=== PATIENT | male | born 1940 | race Caucasian/White ===

== ENCOUNTER 2023-05-16 07:58 | Emergency (ER) | payer OTHER ==
[2023-05-16] MEDS ORDERED: NA CHLORIDE 0.9% 500 ML ONE (08:31)
[2023-05-16] MEDS ORDERED: FAMOTIDINE 20 MG/2 ML VIAL IV ONE (08:31)
[2023-05-16] MEDS ORDERED: DIPHENHYDRAMINE 50 MG/ML VIAL ONE (08:31)
[2023-05-16 08:32] LABS: Absolute Lymphocytes (CBC) 0.8 K/uL (0.7-4.9); Hematocrit 44.6 % (39.6-49.0); Lymphocytes % 13.4 % (15.3-44.8); MPV 6.9 fL (7.6-11.3)
[2023-05-16] MEDS ORDERED: dexAMETHasone 10 MG/ML VIAL ONE (08:33)
[2023-05-16 09:08] LABS: Albumin 3.9 g/dL (3.4-5.0); Bilirubin Total 0.8 mg/dL (0.2-1.0); Potassium 3.8 mEq/L (3.5-5.1); Protein, Total 6.9 g/dL (6.4-8.2)
--- NOTE | 2023-05-16 10:05 | RAD REPORT ---
EXAM DESCRIPTION: CT - Angio Aorta For Dissection - 05/16/2023 9:21 am CLINICAL HISTORY: left flank pain, diarrhea COMPARISON: No comparisons TECHNIQUE: Dynamically enhanced 3 mm thick images of the chest, abdomen, and upper pelvis were obtai christina during administration of approximately 100mL Isovue 370 IV contrast. Sagittal and coronal reconst ructions as well as maximal intensity projection reconstructions were generated and reviewed per an a ortic angiography protocol. All CT scans are performed using dose optimization technique as appropriate and may include automated exposure control or mA/KV adjustment according to patient size. FINDINGS: Aorta is normal in diameter with no dissection or other acute aortic findings. mild athero sclerotic calcifications along the abdominal aorta and its bifurcation. 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 Reconstruction images show no o ther significant findings. Pulmonary arteries are normal as well. No mass or infiltrate in the lung parenchyma. No pleural thickening, pleural effusion or pneumothorax . No abnormal mediastinal or hilar mass or lymphadenopathy seen. No chest wall mass or abnormal axillar y lymphadenopathy. Celiac, SMA and renal arteries show no suspicious findings. 4 millimeter distal left ureteric calculu s, with mild left hydroureteronephrosis. Colonic diverticulosis. Bilateral inguinal hernias containin g fat, larger on the left. Mild lobulated hyperdense material near the gallbladder fundus suggestive of small volume of sludge. Solid abdominal viscera and bowel show no other significant findings. No m ass or abnormal lymphadenopathy. IMPRESSION: No acute abnormalities on CT angiogram of the aorta. 4 millimeter distal left ureteric calculus, with mild left hydroureteronephrosis. Other incidental findings as above. The findings were communicated to Tyson Garcia on 05/16/2023 at 09:58 hours.
[2023-05-16] MEDS ORDERED: MAGNESIUM SULFATE 1 gm IVPB 1 GM/100 ML BAG IV ONE (10:19)
[2023-05-16] MEDS ORDERED: TAMSULOSIN 0.4 MG SR CAP ONE (10:19)
--- NOTE | 2023-05-16 12:40 | ER ---
Nurse's Notes [facility] Name: Arthur De La Paz Age: 82 yrs Sex: Male : 1940 Arrival Date: 05/16/2023 Time: 07:58 Bed 6 Private MD: Diagnosis: Calculus of ureter Presentation: 05/16 08:12 Chief complaint: Patient states: L Flank pain x 2 days. Diarrhea x 4 days prior to ss flank pain starting. Denies N/V. Coronavirus screen: Client denies travel out of the [place] in the last 14 days. Ebola Screen: Patient denies exposure to infectious person. Patient denies travel to an Ebola-affected area in the 21 days before illness onset. Initial Sepsis Screen: Does the patient meet any 2 criteria? No. Patient's initial sepsis screen is negative. Does the patient have a suspected source of infection? No. Patient's initial sepsis screen is negative. Risk Assessment: Do you want to hurt yourself or someone else? Patient reports no desire to harm self or others. Onset of symptoms was May 14, 2023. 08:12 Method Of Arrival: Ambulatory ss 08:12 Acuity: KYLE 3 ss Historical: - Allergies: 08:15 SHELLFISH; ss - Home Meds: 08:35 metoprolol tartrate 25 mg Oral tablet 2 times per day [Active]; jl7 - PMHx: 08:35 Hypertensive disorder; jl7 - Immunization history:: Client reports receiving the 1st dose of the Covid vaccine. - Social history:: Smoking status: Patient denies any tobacco usage or history of. Screenin:35 [facility] ED Fall Risk Assessment (Adult) History of falling in the last 3 months, jl7 including since admission No falls in past 3 months (0 pts) Confusion or Disorientation No (0 pts) Intoxicated or Sedated No (0 pts) Impaired Gait No (0 pts) Mobility Assist Device Used No (0 pt) Altered Elimination No (0 pt) Score/Fall Risk Level 0 - 2 = Low Risk Oriented to surroundings, Maintained a safe environment. Abuse screen: Denies threats or abuse. Denies injuries from another. Nutritional screening: No deficits noted. Tuberculosis screening: No symptoms or risk factors identified. Assessment: 08:30 General: Appears in no apparent distress. uncomfortable, Behavior is calm, cooperative, jl7 appropriate for age. Pain: Complains of pain in left flank Pain currently is 8 out of 10 on a pain scale. Quality of pain is described as sharp, stabbing. Neuro: Level of Consciousness is awake, alert, obeys commands, Oriented to person, place, time, situation. Cardiovascular: Patient's skin is warm and dry. Respiratory: Airway is patent Respiratory effort is even, unlabored, Respiratory pattern is regular, symmetrical. GI: Patient currently denies diarrhea, nausea, vomiting. : Reports decreased output. Derm: Skin is pink, warm \T\ dry. 09:18 Reassessment: Pt taken to CT. ph 10:00 Reassessment: Patient appears in no apparent distress at this time. No changes from jl7 previously documented assessment. Patient and/or family updated on plan of care and expected duration. Pain level reassessed. Patient is alert, oriented x 3, equal unlabored respirations, skin warm/dry/pink. 11:00 Reassessment: Patient appears in no apparent distress at this time. No changes from jl7 previously documented assessment. Patient and/or family updated on plan of care and expected duration. Pain level reassessed. Patient is alert, oriented x 3, equal unlabored respirations, skin warm/dry/pink. 12:00 Reassessment: Patient appears in no apparent distress at this time. No changes from jl7 previously documented assessment. Patient and/or family updated on plan of care and expected duration. Pain level reassessed. Patient is alert, oriented x 3, equal unlabored respirations, skin warm/dry/pink. Magnesium done infusing, awaiting discharge at this time. Vital Signs: 08:12 BP 121 / 81; Pulse 71; Resp 16; Temp 98.1(TE); Pulse Ox 97% on R/A; Weight 90.72 kg; ss Height 5 ft. 10 in. ; Pain 8/10; 08:54 BP 120 / 69; Pulse 57; Resp 18; Pulse Ox 96% on R/A; ph 10:38 BP 107 / 60; Pulse 59; Resp 15; Pulse Ox 100% ; jl7 11:42 BP 114 / 61; Pulse 59; Resp 15; Pulse Ox 100% ; jl7 12:30 BP 115 / 68; Pulse 58; Resp 15; Pulse Ox 100% ; jl7 08:12 Body Mass Index 28.70 (90.72 kg, 177.8 cm) 08:12 Pain Scale: Adult ss ED Course: 08:00 Patient arrived in ED. rg4 08:01 Luke Szymanski PA is PHCP. jmm 08:01 Tyson Garcia MD is Attending Physician. jmm 08:07 Teresa Ballesteros, RN is Primary Nurse. ph 08:12 Tank Cheema, RN is Primary Nurse. jl7 08:15 Triage completed. ss 08:15 Arm band placed on left wrist. ss 08:20 Initial lab(s) drawn, by tx, sent to lab. Inserted saline lock: 20 gauge in right jl7 forearm, using aseptic technique. Blood collected. 08:35 Patient has correct armband on for positive identification. Placed in gown. Bed in low jl7 position. Call light in reach. Side rails up X 1. Pulse ox on. NIBP on. 09:22 CT Aorta for Dissection In Process Unspecified. EDMS 11:00 No provider procedures requiring assistance completed. jl7 12:39 Nickolas Muñoz MD is Referral Physician. jmm 12:56 IV discontinued, intact, bleeding controlled, No redness/swelling at site. Pressure jl7 dressing applied. Administered Medications: 08:20 Drug: NS 0.9% IV 500 ml Route: IV; Rate: bolus; Site: right forearm; jl7 09:00 Follow up: Response: No adverse reaction; IV Status: Completed infusion; IV Intake: jl7 500ml 08:25 Drug: diphenhydrAMINE IVP 12.5 mg Route: IVP; Site: right forearm; jl7 11:39 Follow up: Response: No adverse reaction jl7 08:34 Drug: Famotidine IVP 10 mg Route: IVP; Site: right forearm; jl7 11:39 Follow up: Response: No adverse reaction jl7 08:34 Not Given (Other Intervention Used): MethylPrednisoLONE IVP 125 mg IVP once jl7 08:38 Drug: Decadron - Dexamethasone IVP 10 mg Route: IVP; Site: right forearm; jl7 11:39 Follow up: Response: No adverse reaction jl7 10:36 Drug: Flomax PO 0.4 mg Route: PO; jl7 11:39 Follow up: Response: No adverse reaction jl7 10:36 Drug: Magnesium Sulfate IVPB 1 grams Route: IVPB; Infused Over: 1 hrs; Site: right jl7 forearm; 11:40 Follow up: Response: No adverse reaction; IV Status: Completed infusion jl7 Medication: 08:35 VIS not applicable for this client. jl7 Intake: 09:00 IV: 500ml; Total: 500ml. jl7 Outcome: 12:40 Discharge ordered by . marguerite 12:57 Discharged to home ambulatory. 7 12:57 Condition: stable 12:57 Discharge instructions given to patient, Instructed on discharge instructions, follow up and referral plans. medication usage, Demonstrated understanding of instructions, follow-up care, medications, Prescriptions given X 2. 12:57 Patient left the ED. jl7 Signatures: Dispatcher [employer] EDMS Luke Szymanski PA PA jmm Blanchard, Shelby, RN RN Teresa Logan RN RN genet Howard, Kath 4 Tank Cheema RN RN jl7
--- NOTE | 2023-05-16 12:40 | EDPHYS ---
Physician Documentation [facility] Name: Arthur De La Paz Age: 82 yrs Sex: Male : 1940 Arrival Date: 05/16/2023 Time: 07:58 Bed 6 Private MD: ED Physician Tyson Garcia HPI: 05/16 08:12 This 82 yrs old Male presents to ER via Ambulatory with complaints of Flank Pain. jmm 08:12 The patient complains of pain in the left flank. Onset: The symptoms/episode jmm began/occurred gradually, 2 day(s) ago. Modifying factors: The symptoms are alleviated by nothing. the symptoms are aggravated by nothing. Associated signs and symptoms: Pertinent positives: diarrhea, nausea. This is an 82 year old male with a history of htn, that presents to the ED with complaints of left flank pain, abdominal pain, diarrhea beginning approx 4 days ago. Denies fever. Denies vomiting but states having some nausea. . Historical: - Allergies: 08:15 SHELLFISH; ss - Home Meds: 08:35 metoprolol tartrate 25 mg Oral tablet 2 times per day [Active]; jl7 - PMHx: 08:35 Hypertensive disorder; jl7 - Immunization history:: Client reports receiving the 1st dose of the Covid vaccine. - Social history:: Smoking status: Patient denies any tobacco usage or history of. ROS: 08:12 Constitutional: Negative for fever, chills, and weight loss, Cardiovascular: Negative jmm for chest pain, palpitations, and edema, Respiratory: Negative for shortness of breath, cough, wheezing, and pleuritic chest pain. 08:12 Back: Positive for flank pain, on the left. 08:12 All other systems are negative. Exam: 08:12 Constitutional: This is a well developed, well nourished patient who is awake, alert, jmm and in no acute distress. Head/Face: atraumatic. Eyes: EOMI, no conjunctival erythema appreciated ENT: Moist Mucus Membranes Neck: Trachea midline, Supple Chest/axilla: Normal chest wall appearance and motion. Cardiovascular: Regular rate and rhythm. No edema appreciated Respiratory: Normal respirations, no respiratory distress appreciated Abdomen/GI: Non distended Back: Normal ROM Skin: General appearance color normal MS/ Extremity: Moves all extremities, no obvious deformities appreciated, no edema noted to the lower extremities Neuro: Awake and alert Psych: Behavior is normal, Mood is normal, Patient is cooperative and pleasant Vital Signs: 08:12 BP 121 / 81; Pulse 71; Resp 16; Temp 98.1(TE); Pulse Ox 97% on R/A; Weight 90.72 kg; ss Height 5 ft. 10 in. ; Pain 8/10; 08:54 BP 120 / 69; Pulse 57; Resp 18; Pulse Ox 96% on R/A; ph 10:38 BP 107 / 60; Pulse 59; Resp 15; Pulse Ox 100% ; jl7 11:42 BP 114 / 61; Pulse 59; Resp 15; Pulse Ox 100% ; jl7 12:30 BP 115 / 68; Pulse 58; Resp 15; Pulse Ox 100% ; jl7 08:12 Body Mass Index 28.70 (90.72 kg, 177.8 cm) ss 08:12 Pain Scale: Adult ss MDM: 08:12 Patient medically screened. [facility] 15:00 Differential diagnosis: nephrolithiasis, pyelonephritis, UTI, ruptured AAA, dissecting [facility] AAA. Data reviewed: vital signs, nurses notes, lab test result(s), radiologic studies, CT scan. Consideration of Admission/Observation Escalation of care including admission/observation considered. I considered the following discharge prescriptions or medication management in the emergency department Medications were administered in the Emergency Department. See MAR. Counseling: I had a detailed discussion with the patient and/or guardian regarding: the historical points, exam findings, and any diagnostic results supporting the discharge/admit diagnosis, lab results, radiology results, the need for outpatient follow up, to return to the emergency department if symptoms worsen or persist or if there are any questions or concerns that arise at home. 05/16 08:15 Order name: CBC with Diff; Complete Time: 08:45 [facility] 05/16 08:15 Order name: CMP; Complete Time: 09:15 [facility] 05/16 08:15 Order name: Lipase; Complete Time: 09:15 [facility] 05/16 12:41 Order name: Urinalysis w/ reflexes [facility] 05/16 08:15 Order name: CT Aorta for Dissection; Complete Time: 10:06 [facility] 05/16 08:15 Order name: IV Saline Lock; Complete Time: 08:19 [facility] 05/16 08:15 Order name: Labs collected and sent; Complete Time: 08:19 [facility] Administered Medications: 08:20 Drug: NS 0.9% IV 500 ml Route: IV; Rate: bolus; Site: right forearm; jl7 09:00 Follow up: Response: No adverse reaction; IV Status: Completed infusion; IV Intake: jl7 500ml 08:25 Drug: diphenhydrAMINE IVP 12.5 mg Route: IVP; Site: right forearm; jl7 11:39 Follow up: Response: No adverse reaction jl7 08:34 Drug: Famotidine IVP 10 mg Route: IVP; Site: right forearm; jl7 11:39 Follow up: Response: No adverse reaction jl7 08:34 Not Given (Other Intervention Used): MethylPrednisoLONE IVP 125 mg IVP once jl7 08:38 Drug: Decadron - Dexamethasone IVP 10 mg Route: IVP; Site: right forearm; jl7 11:39 Follow up: Response: No adverse reaction jl7 10:36 Drug: Flomax PO 0.4 mg Route: PO; jl7 11:39 Follow up: Response: No adverse reaction jl7 10:36 Drug: Magnesium Sulfate IVPB 1 grams Route: IVPB; Infused Over: 1 hrs; Site: right jl7 forearm; 11:40 Follow up: Response: No adverse reaction; IV Status: Completed infusion jl7 Disposition Summary: 05/16/23 12:40 Discharge Ordered Location: Home [facility] Condition: Stable [facility] Diagnosis - Calculus of ureter [facility] Followup: [facility] - With: Nickolas Muñoz MD - When: 2 - 3 days - Reason: Recheck today's complaints, Continuance of care, Re-evaluation by your physician Discharge Instructions: - Discharge Summary Sheet [facility] - Kidney Stones [facility] - Dietary Guidelines to Help Prevent Kidney Stones [facility] Forms: - Medication Reconciliation Form [facility] - Thank You Letter [facility] - Antibiotic Education [facility] - Prescription Opioid Use [facility] - [email or web address] Prescriptions: - Flomax 0.4 mg Oral capsule - take 1 capsule by ORAL route every 24 hours for 10 days; 10 capsule; Refills: [facility] 0, Product Selection Permitted - Cephalexin 500 mg Oral Capsule - take 1 capsule by ORAL route every 8 hours for 10 days; 30 capsule; Refills: 0, [facility] Product Selection Permitted Signatures: Dispatcher MedLuke Henry PA PA jmm Blanchard, Shelby, RN RN ss Tank Cheema RN RN jl7
[2023-05-16 13:04] LABS: Specific Gravity > 1.030 (1.005-1.030); Urine Bacteria None Seen /HPF (<20); Urine Bilirubin NEGATIVE (Negative); Urine Blood 2+ (Negative); Urine Clarity Clear (Clear); Urine Color Light-Yellow (Yellow); Urine Glucose 1+ (Negative); Urine Mucus Slight /HPF (None Seen); Urine Protein TRACE (Negative); Urine Urobilinogen Normal (Normal); Urine pH 5.5 (5.0-7.0)
[2023-05-16 13:20] VITALS: TEMP 98.1
[2023-05-16 13:24] VITALS: O2SAT 100
[2023-05-16 13:27] VITALS: BP 115/68
== END 2023-05-16 12:57 | disposition home or self-care (01) ==
LOC: ER 07:58
DX: N20.1 Calculus of ureter (principal); I10 Essential (primary) hypertension; Z91.013 Allergy to seafood
CPT/HCPCS: 85025; 81001; 36415; 83690; 80053; 71275; 74175; Q9967; J3475; J1200; J1100; J7040